=== PATIENT | male | born 1975 | race Caucasian/White ===

== ENCOUNTER 2021-06-03 23:20 | Emergency (ER) | payer BC ==
[2021-06-03] MEDS ORDERED: Sodium Chloride 0.9% 1,000 ML IV SCH (23:45)
[2021-06-03] MEDS ORDERED: Sodium Chloride 0.9% 10 ML Syringe FLUSH PRN (23:49)
[2021-06-03] MEDS ORDERED: Morphine 4 MG/ML Syringe IVPUSH ONE (23:50)
[2021-06-03] MEDS ORDERED: Ondansetron 4 MG/2 ML SDV IVPUSH ONE (23:50)
[2021-06-04 00:31] LABS: BARBITURATE SCREEN,URINE NEGATIVE (NEGATIVE); BENZODIAZEPINES SCREEN,URINE NEGATIVE (NEGATIVE); BUPRENORPHINE SCREEN,URINE NEGATIVE (NEGATIVE); METHAMPHETAMINE SCREEN, URINE NEGATIVE (NEGATIVE); THC SCREEN,URINE 50 NG/ML NEGATIVE (NEGATIVE)
[2021-06-04 00:42] VITALS: BP 140/87; PULSE 90
--- NOTE | 2021-06-04 00:46 | EDM.PDOC ---
ED HPI GENERAL MEDICAL PROBLEM - General Chief Complaint: Abdominal Pain Stated Complaint: Abdominal Pain Time Seen by Provider: 06/03/21 23:35 Source of Information: Reports: Patient, Family History Limitations: Reports: No Limitations - History of Present Illness INITIAL COMMENTS - FREE TEXT/NARRATIVE: Pt. presents to ER with complaints of L lower quadrant abdominal pain. Pt. states that this started about 2 days ago, isn't getting better so presents to ER. He states that he was previously on mesalamine for UC, and stopped taking that several months ago as he was feeling better and thought the medication was causing GERD symptoms. Pt. states that he has felt chilled. Temp of 99 at home. He states that he had a normal BM today. Denies any diarrhea. He states that he has some blood in his stools, but this is a very common finding for him. Denies any constipation. He complains of nausea, no vomiting. Denies any substernal chest pain or shortness of breath. Denies any discomfort to genitalia or flanks. No discoloration to urine. Onset: Today Onset Date: 06/04/21 Location: Reports: Abdomen Quality: Reports: Ache, Burning Severity: Severe Associated Symptoms: Reports: Nausea/Vomiting Left lower quadrant abdomen Pain Score (Numeric/FACES): 4 - Related Data Allergies Allergy/AdvReac Type Severity Reaction Status Date / Time No Known Drug Allergies Allergy Cannot Verified 05/15/21 10:57 Remember Home Meds: Home Meds Mesalamine 4.8 gm PO DAILY 05/15/21 [History] amLODIPine Besylate [Amlodipine Besylate] 10 mg PO DAILY 05/15/21 [History] Social & Family History - Caffeine Use Caffeine Use: Reports: Coffee, Soda ED ROS GENERAL - Review of Systems Review Of Systems: See Below Constitutional: Reports: No Symptoms HEENT: Reports: No Symptoms Respiratory: Reports: No Symptoms Cardiovascular: Reports: No Symptoms Endocrine: Reports: No Symptoms GI/Abdominal: Reports: Abdominal Pain, Bloody Stool : Reports: No Symptoms Musculoskeletal: Reports: No Symptoms Skin: Reports: No Symptoms Neurological: Reports: No Symptoms Psychiatric: Reports: No Symptoms Hematologic/Lymphatic: Reports: No Symptoms Immunologic: Reports: No Symptoms ED EXAM, GENERAL - Physical Exam Exam: See Below Exam Limited By: No Limitations General Appearance: Alert, WD/WN, No Apparent Distress Head: Atraumatic, Normocephalic Neck: Normal Inspection, Supple, Non-Tender, Full Range of Motion Respiratory/Chest: No Respiratory Distress, Lungs Clear, Normal Breath Sounds, N o Accessory Muscle Use, Chest Non-Tender Cardiovascular: Normal Peripheral Pulses, Regular Rate, Rhythm, No Edema, No Gallop, No JVD Peripheral Pulses: 4+: Radial (L) GI/Abdominal: Soft, No Organomegaly, No Distention, No Mass, Tender (L mid, lower quadrant. Increased tenderness on palpation. BS present, normoactive.) (Male) Exam: Deferred Rectal (Males) Exam: Deferred Back Exam: Normal Inspection, Full Range of Motion Extremities: Normal Inspection, Normal Range of Motion, Non-Tender, No Pedal Edema, Normal Capillary Refill Neurological: Alert, Oriented, CN II-XII Intact, Normal Cognition, Normal Reflexes, No Motor/Sensory Deficits Psychiatric: Normal Affect, Normal Mood Skin Exam: Warm, Dry, Intact, Normal Color, No Rash Lymphatic: No Adenopathy Course - Vital Signs Last Recorded V/S: Last Vital Signs Temp 37.1 C 06/03/21 23:20 Pulse 90 06/03/21 23:20 Resp 16 06/03/21 23:20 BP 140/87 06/03/21 23:20 Pulse Ox 99 06/03/21 23:20 - Orders/Labs/Meds Orders: Active Orders 24 hr Category Date Time Status Abdomen Pelvis w Cont [CT] Stat Exams 06/04/21 00:31 Ordered Sodium Chloride 0.9% [Normal Saline] 1,000 ml Med 06/03/21 23:45 Ordered IV ASDIRECTED Sodium Chloride 0.9% [Saline Flush] Med 06/03/21 23:49 Ordered 10 ml FLUSH ASDIRECTED PRN Peripheral IV Insertion Adult [OM.PC] Routine Oth 06/03/21 23:49 Ordered Medication Orders Sodium Chloride (Normal Saline) 1,000 mls @ 125 mls/hr IV ASDIRECTED PATTI Last Admin: 06/04/21 00:20 Dose: 125 mls/hr Documented by: RAUL Sodium Chloride (Sodium Chloride 0.9% 10 Ml Syringe) 10 ml FLUSH ASDIRECTED PRN PRN Reason: Keep Vein Open Labs: Laboratory Tests 08/13/21 08/13/21 08/13/21 Range/Units 00:06 00:30 00:30 WBC 11.4 H (4.0-10.0) x10^3/uL RBC 5.03 (4.5-6.0) x10^6/uL Hgb 15.1 (14.0-18.0) g/dL Hct 43.0 (40.0-52.0) % MCV 85.5 (78.0-93.0) fL MCH 30.0 (26.0-32.0) pg MCHC 35.1 (32.0-36.0) g/dL RDW Coeff of Philip 13.0 (10.0-15.0) % Plt Count 237 (130-400) x10^3/uL Neut % (Auto) 75.8 (50.0-80.0) % Lymph % (Auto) 13.9 L (25.0-50.0) % Cannon % (Auto) 9.0 (2.0-11.0) % Eos % (Auto) 1.1 (0.0-4.0) % Baso % (Auto) 0.2 (0.2-1.2) % PT 10.0 (9.9-12.5) SEC INR 0.9 L (2.0-3.5) APTT 25.9 (25.6-32.8) SEC Sodium 139 (136-145) mmol/L Potassium 3.9 (3.5-5.1) mmol/L Chloride 103 (98-107) mmol/L Carbon Dioxide 25 (21-32) mmol/L Anion Gap 14.9 (5-15) mmol/L BUN 15 (7-18) mg/dL Creatinine 1.0 (0.70-1.30) mg/dL Est Cr Clr Drug Dosing 97.33 mL/min Estimated GFR (MDRD) > 60 Glucose 97 (70-99) mg/dL Calcium 8.6 (8.5-10.1) mg/dL Corrected Calcium 8.8 (8.5-10.1) mg/dL Phosphorus 3.7 (2.6-4.7) mg/dL Magnesium 2.1 (1.8-2.4) mg/dL Total Bilirubin 0.9 (0.2-1.0) mg/dL AST 18 (15-37) U/L ALT 28 (16-63) U/L Alkaline Phosphatase 53 (46-116) U/L C-Reactive Protein 3.3 H (<=0.9) mg/dL Total Protein 7.4 (6.4-8.2) g/dL Albumin 3.7 (3.4-5.0) g/dL Globulin 3.7 Albumin/Globulin Ratio 1.00 Urine Color (YELLOW) Urine Appearance (CLEAR) Urine pH (5.0-8.0) Ur Specific Nursery Urine Protein (NEGATIVE) mg/dL Urine Glucose (UA) (NEGATIVE) mg/dL Urine Ketones (NEGATIVE) mg/dL Urine Occult Blood (NEGATIVE) Urine Nitrite (NEGATIVE) Urine Bilirubin (NEGATIVE) Urine Urobilinogen (0.2) EU/dL Ur Leukocyte Esterase (NEGATIVE) Urine Opiates Screen (NEGATIVE) Ur Buprenorphine Scrn (NEGATIVE) Ur Oxycodone Screen (NEGATIVE) Urine Methadone Screen (NEGATIVE) Ur Barbiturates Screen (NEGATIVE) Ur Phencyclidine Scrn (NEGATIVE) Ur Amphetamine Screen (NEGATIVE) U Methamphetamines Scrn (NEGATIVE) Urine MDMA Screen (NEGATIVE) U Benzodiazepines Scrn (NEGATIVE) U Cocaine Metab Screen (NEGATIVE) U Marijuana (THC) Screen (NEGATIVE) 06/03/21 06/03/21 Range/Units 23:55 23:55 WBC (4.0-10.0) x10^3/uL RBC (4.5-6.0) x10^6/uL Hgb (14.0-18.0) g/dL Hct (40.0-52.0) % MCV (78.0-93.0) fL MCH (26.0-32.0) pg MCHC (32.0-36.0) g/dL RDW Coeff of Philip (10.0-15.0) % Plt Count (130-400) x10^3/uL Neut % (Auto) (50.0-80.0) % Lymph % (Auto) (25.0-50.0) % Cannon % (Auto) (2.0-11.0) % Eos % (Auto) (0.0-4.0) % Baso % (Auto) (0.2-1.2) % PT (9.9-12.5) SEC INR (2.0-3.5) APTT (25.6-32.8) SEC Sodium (136-145) mmol/L Potassium (3.5-5.1) mmol/L Chloride (98-107) mmol/L Carbon Dioxide (21-32) mmol/L Anion Gap (5-15) mmol/L BUN (7-18) mg/dL Creatinine (0.70-1.30) mg/dL Est Cr Clr Drug Dosing mL/min Estimated GFR (MDRD) Glucose (70-99) mg/dL Calcium (8.5-10.1) mg/dL Corrected Calcium (8.5-10.1) mg/dL Phosphorus (2.6-4.7) mg/dL Magnesium (1.8-2.4) mg/dL Total Bilirubin (0.2-1.0) mg/dL AST (15-37) U/L ALT (16-63) U/L Alkaline Phosphatase (46-116) U/L C-Reactive Protein (<=0.9) mg/dL Total Protein (6.4-8.2) g/dL Albumin (3.4-5.0) g/dL Globulin Albumin/Globulin Ratio Urine Color Yellow (YELLOW) Urine Appearance Clear (CLEAR) Urine pH 5.5 (5.0-8.0) Ur Specific Nursery 1.025 Urine Protein Negative (NEGATIVE) mg/dL Urine Glucose (UA) Negative (NEGATIVE) mg/dL Urine Ketones 40 H (NEGATIVE) mg/dL Urine Occult Blood Negative (NEGATIVE) Urine Nitrite Negative (NEGATIVE) Urine Bilirubin Negative (NEGATIVE) Urine Urobilinogen 0.2 (0.2) EU/dL Ur Leukocyte Esterase Negative (NEGATIVE) Urine Opiates Screen Negative (NEGATIVE) Ur Buprenorphine Scrn Negative (NEGATIVE) Ur Oxycodone Screen Negative (NEGATIVE) Urine Methadone Screen Negative (NEGATIVE) Ur Barbiturates Screen Negative (NEGATIVE) Ur Phencyclidine Scrn Negative (NEGATIVE) Ur Amphetamine Screen Negative (NEGATIVE) U Methamphetamines Scrn Negative (NEGATIVE) Urine MDMA Screen Negative (NEGATIVE) U Benzodiazepines Scrn Negative (NEGATIVE) U Cocaine Metab Screen Negative (NEGATIVE) U Marijuana (THC) Screen Negative (NEGATIVE) Meds: Medications Generic Name Dose Route Start Last Admin Trade Name Freq PRN Reason Stop Dose Admin Sodium Chloride 1,000 mls @ 125 mls/hr 06/03/21 23:45 06/04/21 00:20 Normal Saline IV 125 mls/hr ASDIRECTED PATTI Administration Sodium Chloride 10 ml 06/03/21 23:49 Sodium Chloride 0.9% 10 Ml Syringe FLUSH ASDIRECTED PRN Keep Vein Open Discontinued Medications Generic Name Dose Route Start Last Admin Trade Name Avril PRN Reason Stop Dose Admin Hydrocodone Bitart/Acetaminophen 1 packet 06/04/21 02:13 06/04/21 02:27 Take Home: Acetaminophen/Hydrocodone 325-10 Mg, 5 Tab Pack PO 06/04/21 02:14 1 packet ONETIME ONE Administration Ciprofloxacin 1 packet 06/04/21 02:13 06/04/21 02:27 Take Home: Ciprofloxacin 500 Mg Tab, 2 Tab Pack PO 06/04/21 02:14 1 packet ONETIME ONE Administration Hydromorphone HCl 1 mg 06/04/21 00:56 06/04/21 01:24 Hydromorphone 1 Mg/Ml Syringe IVPUSH 06/04/21 00:57 1 mg ONETIME ONE Administration Iopamidol 100 ml 06/04/21 01:16 06/04/21 01:18 Iopamidol 612 Mg/Ml 100 Ml Bottle IVPUSH 06/04/21 01:17 100 ml ONETIME ONE Administration Metronidazole 1 packet 06/04/21 02:13 06/04/21 02:27 Take Home: Metronidazole 500 Mg Tab, 4 Tab Pack PO 06/04/21 02:14 1 packet ONETIME ONE Administration Morphine Sulfate 4 mg 06/03/21 23:50 06/04/21 00:27 Morphine 4 Mg/Ml Syringe IVPUSH 06/03/21 23:51 4 mg ONETIME ONE Administration Ondansetron HCl 4 mg 06/03/21 23:50 06/04/21 00:25 Ondansetron 4 Mg/2 Ml Sdv IVPUSH 06/03/21 23:51 4 mg ONETIME ONE Administration - Radiology Interpretation Free Text/Narrative:: CT abdomen and pelvis obtained. + severe diverticulitis. No abscess. No obstruction. No perforation. Departure - Departure Time of Disposition: 02:38 Disposition: Home, Self-Care 01 Clinical Impression: Diverticulitis - Discharge Information Instructions: Diverticulitis, [id number], Ciprofloxacin tablets, Metronidazole tablets or capsules, Probiotics Referrals: PCP,None [Primary Care Provider] - Forms: ED Department Discharge Additional Instructions: Cipro 500mg 1 tab twice daily for 10 days Metronidazole 500mg 1 tab 3 time daily for 10 days Downs 10/325mg 1 every 4-6 hours as needed for pain. Take a probiotic or eat yogurt while you are taking the antibiotics. Recheck in clinic in 10-14 days Sepsis Event Note (ED) - Focused Exam Vital Signs: Vital Signs Temp Pulse Resp BP Pulse Ox 06/03/21 23:20 37.1 C 90 16 140/87 99 - Problem List Review Problem List Initiated/Reviewed/Updated: Yes - My Orders Last 24 Hours: My Active Orders 06/03/21 23:45 Sodium Chloride 0.9% [Normal Saline] 1,000 ml IV ASDIRECTED 06/03/21 23:49 Sodium Chloride 0.9% [Saline Flush] 10 ml FLUSH ASDIRECTED PRN Peripheral IV Insertion Adult [OM.PC] Routine 06/04/21 00:31 Abdomen Pelvis w Cont [CT] Stat - Assessment/Plan Last 24 Hours: My Active Orders 06/03/21 23:45 Sodium Chloride 0.9% [Normal Saline] 1,000 ml IV ASDIRECTED 06/03/21 23:49 Sodium Chloride 0.9% [Saline Flush] 10 ml FLUSH ASDIRECTED PRN Peripheral IV Insertion Adult [OM.PC] Routine 06/04/21 00:31 Abdomen Pelvis w Cont [CT] Stat Plan: Cipro 500mg 1 tab twice daily for 10 days Metronidazole 500mg 1 tab 3 time daily for 10 days Downs 10/325mg 1 every 4-6 hours as needed for pain. Take a probiotic or eat yogurt while you are taking the antibiotics. Recheck in clinic in 10-14 days
[2021-06-04] MEDS ORDERED: HYDROmorphone 1 MG/ML Syringe IVPUSH ONE (00:56)
[2021-06-04] MEDS ORDERED: Iopamidol 612 MG/ML 100 ML Bottle IVPUSH ONE (01:16)
[2021-06-04] MEDS ORDERED: Take Home: Acetaminophen/HYDROcodone 325-10 MG, 5 Tab Pack PO ONE (02:13)
[2021-06-04] MEDS ORDERED: Take Home: Ciprofloxacin 500 MG Tab, 2 Tab Pack PO ONE (02:13)
[2021-06-04] MEDS ORDERED: Take Home: metroNIDAZOLE 500 MG Tab, 4 Tab Pack PO ONE (02:13)
--- NOTE | 2021-06-04 14:30 | CT ---
[id number] CT/CT Abdomen Pelvis W IV EXAM: ABDOMEN AND PELVIS CT WITH CONTRAST INDICATION: Left lower quadrant abdominal pain and elevated white blood cell count. COMPARISON: None. DISCUSSION: There are multiple diverticula of the colon. The proximal sigmoid colon demonstrates moderate mural thickening with surrounding inflammatory changes and small volume fluid in the left paracolic gutter and pelvis. These findings are most consistent with acute diverticulitis. No drainable abscess or remote free air is identified. After the acute episode, colonoscopy may be useful to help further exclude other underlying pathology. Mild linear subsegmental atelectasis in the left lung base. The liver, gallbladder, pancreas, spleen, adrenal glands, kidneys, small bowel, and the appendix are normal in appearance. No adenopathy. The osseous structures are unremarkable. IMPRESSION: 1. Acute sigmoid diverticulitis. There is a small volume of associated free fluid, but no drainable abscess or remote free air. Raz Walker MD 06/04/21 [id number] Thank you for allowing us to participate in the care of your patient.
[2021-06-05 09:46] LABS: ANION GAP 14.9 mmol/L (5-15); CHLORIDE,CL 103 mmol/L (98-107); PTT,PARTIAL THROMBOPLSTIN TIME 25.9 SEC (25.6-32.8); SODIUM,NA 139 mmol/L (136-145)
== END 2021-06-04 02:36 | disposition home or self-care (01) ==
LOC: VM.ED 23:20
DX: K57.32 Diverticulitis of large intestine without perforation or abscess without bleeding (principal); Z79.899 Other long term (current) drug therapy
CPT/HCPCS: 36415; 74177; 80053; 80305-QW; 81003; 83735; 84100; 85025; 85610; 85730; 86140; 96374; 96375; 99284; 99284-25; A9270-GY; J1170; J2270; J2405; J7030; Q9967